=== PATIENT | female | born 1970 | race African-American/Black ===

== ENCOUNTER 2020-05-25 14:17 | Emergency (ER) | payer SELFPAY ==
[~2020-05-25] VITALS: Ht 167.6 cm; Wt 111.3 kg
[2020-05-25 16:11] LABS: BILIRUBIN,URINE NEGATIVE (NEG); CLARITY,URINE CLEAR; COLOR,URINE YELLOW; NITRITE,URINE NEGATIVE (NEG); PROTEIN,URINE NEGATIVE (NEG-TRACE)
[2020-05-25 16:21] LABS: BACTERIA,URINE FEW /HPF (0-FEW)
[2020-05-25] MEDS ORDERED: methylPREDNISolone ACETATE 80 MG/ML VIAL. IM ONE (16:45)
[2020-05-25] MEDS ORDERED: ACETAMINOPHEN 325 MG TABLET. PO ONE (16:45)
[2020-05-25] MEDS ORDERED: KETOROLAC 60 MG/2 ML VIAL. IM ONE (16:45)
[2020-05-25] MEDS ORDERED: CEPHALEXIN 250 MG CAPSULE. PO ONE (16:45)
[2020-05-25] MEDS ORDERED: PHENAZOPYRIDINE 200 MG TABLET. PO ONE (16:45)
[2020-05-25] MEDS ORDERED: CYCLOBENZAPRINE 10 MG TABLET. PO ONE (16:45)
[2020-05-25 17:00] VITALS: BP 155/82
[2020-05-25] MEDS ORDERED: PHEN-318 PO (17:01)
[2020-05-25] MEDS ORDERED: CEPH500T PO (17:01)
[2020-05-25] MEDS ORDERED: IBUP-1007 PO (17:01)
[2020-05-25] MEDS ORDERED: CYCL10TA2 PO (17:01)
--- NOTE | 2020-05-25 17:02 | PHYS DOC ---
General Adult EDM: Chief Complaint: BACK PAIN - NO INJURY HPI: HPI: Patient is a 50 year old presents to the emergency department complaining of left-sided low back pain stating that she has had chronic low back pain ever since she pinched nerve in her low back about a year ago. Patient states that the pain started about 5 days ago off and on and became constant over the past 2 days which she rates a 7/10 pain on a 1-10 pain scale. She states she also has had some burning with urination. Patient denies vaginal discharge, denies pelvic pains, denies STI concerns. Patient states she gets UTIs often and states this feels like a UTI but also feels like her sciatica back pain. Den vogt denies any numbness or tingling down her extremities. Patient denies any loss of bowel or bladder. She denies any recent fever chills, denies chest pains, denies abdominal pain, denies nausea, vomiting, diarrhea, denies shortness of breath. Review of Systems: Review of Systems: 14 body systems of review of systems have been reviewed. See HPI for pertinent positives and negative responses, otherwise all other systems are negative, nonpertinent or noncontributory. Heart Score: Risk Factors: Risk Factors: DM, Current or recent (<one month) smoker, HTN, HLP, family history of CAD, obesity. Risk Scores: Score 0 - 3: 2.5% MACE over next 6 weeks - Discharge Home Score 4 - 6: 20.3% MACE over next 6 weeks - Admit for Clinical Observation Score 7 - 10: 72.7% MACE over next 6 weeks - Early Invasive Strategies Current Medications: Current Medications Medications (Trade) Dose Ordered Sig/Judith Start Time Stop Time Status Last Admin Dose Admin Acetaminophen (Tylenol) 650 mg 1X ONCE 05/25/20 16:45 05/25/20 16:46 UNV Cephalexin HCl (Keflex) 500 mg 1X STAT 05/25/20 16:37 05/25/20 16:38 UNV Cyclobenzaprine HCl (Flexeril) 10 mg 1X ONCE 05/25/20 16:45 05/25/20 16:46 Ketorolac Tromethamine (Toradol Im) 60 mg 1X ONCE 05/25/20 16:45 05/25/20 16:46 UNV Methylprednisolone Acetate (DEPO-Medrol 80MG VIAL) 80 mg 1X ONCE 05/25/20 16:45 05/25/20 16:46 Phenazopyridine HCl (Pyridium) 200 mg 1X ONCE 05/25/20 16:45 05/25/20 16:46 Allergies: Allergies: Allergies Coded Allergies Type Severity Reaction Last Updated Verified Penicillins Allergy Mild rash 05/25/20 Yes Physical Exam: PE: Constitutional: Well developed, well nourished, no acute distress, non-toxic appearance. HENT: Normocephalic, atraumatic, bilateral external ears normal, oropharynx moist, no oral exudates, nose normal. Eyes: PERRLA, EOMI, conjunctiva normal, no discharge. Neck: Normal range of motion, no tenderness, supple, no stridor. Cardiovascular:Heart rate regular rhythm, no murmur Lungs & Thorax: Bilateral breath sounds clear to auscultation Abdomen: Bowel sounds normal, soft, no tenderness, no masses, no pulsatile masses. Skin: Warm, dry, no erythema, no rash. Back: No CVA tenderness elicited, left lumbar area pain to palpation near spine and across the left lumbar area and superior aspect of buttocks. No loss of sensation down lower extremities bilaterally, no lower extremity swelling appreciated, cap refill less than 2 seconds bilateral lower extremities, no edema appreciated of the lower extremities, 2+ dorsalis pedis/posterior tibial pulses bilaterally. Extremities: No tenderness, no cyanosis, no clubbing, ROM intact, no edema. Neurologic: Alert and oriented X 3, normal motor function, normal sensory function, no focal deficits noted. Psychologic: Affect normal, judgement normal, mood normal. Current Patient Data: Labs: Laboratory Tests Test 05/25/20 15:55 Urine Collection Type Unknown Urine Color Yellow Urine Clarity Clear Urine pH 6.0 (<5.0-8.0) Urine Specific [place] 1.020 (1.000-1.030) Urine Protein Negative mg/dL (NEG-TRACE) Urine Glucose (UA) Negative mg/dL (NEG) Urine Ketones (Stick) Negative mg/dL (NEG) Urine Blood Moderate (NEG) Urine Nitrite Negative (NEG) Urine Bilirubin Negative (NEG) Urine Urobilinogen Dipstick 1.0 mg/dL (0.2 mg/dL) Urine Leukocyte Esterase Negative (NEG) Urine RBC 6-10 /HPF (0-2) Urine WBC 1-4 /HPF (0-4) Urine Squamous Epithelial Cells Many /LPF Urine Bacteria Few /HPF (0-FEW) Urine Mucus Marked /LPF EKG: EKG: [] Radiology/Procedures: Radiology/Procedures: [] Course & Med Decision Making: Course & Med Decision Making Pertinent Labs and Imaging studies reviewed. (See chart for details) 50-year-old female vital signs reviewed, physical exam consistent with lumbago, no saddle anesthesia appreciated, however patient has history of recurrent UTIs, a urinalysis was sent for urine assay. Pending result Urine assay results concerning for UTI with hematuria. Will treat urinary tract infection with p.o. Keflex prescription, Pyridium prescription, will start p.o. Keflex and Pyridium in ED today. Will treat patient's back pain with IM steroid, home with Flexeril p.o. Tylenol. In ED today. Will send home with prescription for p.o. Flexeril, p.o. ibuprofen. Patient gave verbal understanding of prescriptions instructions, home care instructions, return to ER concerns, follow-up with primary care, had no further questions or concerns and was discharged home without incident. Impression: #1 Lumbago with sciatica left side #2 urinary tract infection with hematuria Dragon Disclaimer: Roberto Disclaimer: This electronic medical record was generated, in whole or in part, using a voice recognition dictation system. Departure Departure Impression: Primary Impression: Lumbago Qualified Codes: M54.42 - Lumbago with sciatica, left side Additional Impression: UTI (urinary tract infection) Qualified Codes: N39.0 - Urinary tract infection, site not specified; R31.9 - Hematuria, unspecified Disposition: 01 DC HOME SELF CARE/HOMELESS Condition: IMPROVED Referrals: UNKNOWN PCP NAME (PCP) Patient Instructions: Back Pain, Adult, Urinary Tract Infection Additional Instructions: Take prescribed medications as directed, follow-up with your doctor soon, return to the emergency department for worsening symptoms or other concerns. EMERGENCY DEPARTMENT GENERAL DISCHARGE INSTRUCTIONS Thank you for coming to [facility] Emergency Department (ED) today and trusting us with you care. We trust that you had a positive experience in our Emergency Department. If you wish to speak to the department management, you may call the Director at [phone]. YOUR FOLLOW UP INSTRUCTIONS ARE FOLLOWS: 1. Do you have a private Doctor? If you do not have a private doctor, please ask for a resource list of physicians or clinics that may be able to assist you with follow up care. 2. The Emergency Physicain has interpreted your x-rays. The X-Ray specialist will also review them. If there is a change in the findings, you will be notified in 48 hours when at all possible. 3. A lab test or culture has been done, your results will be reviewed and you will be notified if you need a change in treatment. ADDITIONAL INSTRUCTIONS AND INFORMATION: 1. Your care today has been supervised by a physician who is specially trained in emergency care. Many problems require more than one evaluation for a complete diagnosis and treatment. We recommend that you schedule your follow up appointment as recommended to ensure complete treatment of you illness or injury. If you are unable to obtain follow up care and continue to have a problem, or if your condition worsens, we recommend that you return to the ED. 2. We are not able to safely determine your condition over the phone nor are we able to give sound medical advice over the phone. For these safety reasons, if you call for medical advice we will ask you to come to the ED for further evaluation. 3. If you have any questions regarding these discharge instructions please call the ED at [phone]. SAFETY INFORMATION: In the interest of safety, wellness, and injury prevention; we encourage you to wear your sealbelt, if you smoke; quite smoking, and we encourage family to use a prot ective helmet for bicycling and other sporting events that present an increased risk for head injury. IF YOUR SYMPTOMS WORSEN OR NEW SYMPTOMS DEVELOP, OR YOU HAVE CONCERNS ABOUT YOUR CONDITION; OR IF YOUR CONDITION WORSENS WHILE YOU ARE WAITING FOR YOUR FOLLOW UP APPOINTMENT; EITHER CONTACT YOUR PRIMARY CARE DOCTOR, THE PHYSICIAN WHOSE NAME AND NUMBER YOU WERE GIVEN, OR RETURN TO THE ED IMMEDIATELY. Scripts Ibuprofen (IBUPROFEN) 600 Mg Tablet 600 MG PO PRN Q6HRS PRN for INFLAMMATION, #20 TAB 0 Refills Prov: NICOLE CARR [employer] 05/25/20 Cyclobenzaprine Hcl (CYCLOBENZAPRINE HCL) 10 Mg Tablet 10 MG PO TID PRN for BACK SPASMS, #15 TAB 0 Refills Prov: NICOLE CARR [employer] 05/25/20 Cephalexin (CEPHALEXIN) 500 Mg Tablet 1 TAB PO BID for URINARY TRACT INFECTION, #20 TAB 0 Refills Prov: NICOLE CARR [employer] 05/25/20 Phenazopyridine Hcl (PYRIDIUM) 200 Mg Tablet 1 TAB PO TID for urinary discomfort for 2 Days, #6 TAB 0 Refills Prov: NICOLE CARR APRN 05/25/20 NICOLE CARR APRN May 25, 2020 17:01
== END 2020-05-25 17:15 | disposition home or self-care (01) ==
LOC: ER 14:17
DX: N39.0 Urinary tract infection, site not specified (principal); R31.9 Hematuria, unspecified; M54.42 Lumbago with sciatica, left side; R30.9 Painful micturition, unspecified; G89.29 Other chronic pain; Z88.0 Allergy status to penicillin
CPT/HCPCS: 81001; 96372; 99284; J1040; J1885